=== PATIENT | female | born 1970 | race Caucasian/White ===

== ENCOUNTER 2021-02-05 22:53 | Emergency (ER) | payer MEDICAID ==
[~2021-02-05] VITALS: Ht 149.9 cm; Wt 54.9 kg
[2021-02-05 23:09] VITALS: BP 144/90
--- NOTE | 2021-02-05 23:18 | NUR ---
patient to [facility] ambulatory
--- NOTE | 2021-02-06 00:12 | NUR ---
PATIENT AMBULATED TO BED 2
--- NOTE | 2021-02-06 00:20 | NUR ---
50 yo f bib self with c/c of shakiness since about 10 pm last night. pt states she was watching tv and felt a wet feeling run up her left leg up to back and neck; began shaking and vision became blurry. pt states it has subsided and started up again. reports pressure in back of head and tightness in neck, denies h/a. denies drug and alcohol use. denies sob, fever, n/v. pt is shaking. pt placed on child monitor. bed locked in lowest position, side rails x2. hx:anemia, hyperthyroidism denies rx and allergies.
[2021-02-06 01:11] LABS: BASOPHILS # (AUTO) 0.1 K/uL (0.00-0.22); EOSINOPHILS # (AUTO) 0.3 K/uL (0-0.4); EOSINOPHILS % (AUTO) 3.6 % (0.0-4.0); HEMATOCRIT 25.1 % (36-48); HEMOGLOBIN 7.5 g/dL (12.0-16.0); LYMPHOCYTES # (AUTO) 1.8 K/uL (2.5-16.5); LYMPHOCYTES % (AUTO) 24.9 % (20.5-51.1); MEAN CORPUSCULAR HEMOGLOBIN 19 pg (27-31); MEAN CORPUSCULAR HGB CONC 30 g/dL (33-37); MEAN CORPUSCULAR VOLUME 63.7 fL (80-94); MONOCYTES # (AUTO) 0.5 K/uL (0.8-1.0); MONOCYTES % (AUTO) 6.9 % (1.7-9.3); NEUTROPHILS # (AUTO) 4.6 K/uL (1.8-7.7); NEUTROPHILS % (AUTO) 63.6 % (42.2-75.2); PLATELET COUNT (AUTO) 425 K/uL (140-450); RED BLOOD CELL COUNT(AUTO) 3.95 MIL/uL (4.20-5.40); WHITE BLOOD COUNT (AUTO) 7.3 K/uL (4.8-10.8)
[2021-02-06] MEDS: diazePAM 5 MG TAB PO ONE (01:12)
--- NOTE | 2021-02-06 01:30 | NUR ---
pt ambulated to with steady gait and back to bed.
[2021-02-06 01:34] LABS: ALBUMIN 3.8 g/dL (3.4-5.0); ANION GAP 14.7 (8-16); CARBON DIOXIDE 25.2 mmol/L (21-32); CREATININE 0.7 mg/dL (0.6-1.3); FREE T4 (FREE THYROXINE) 0.55 ng/dL (0.76-1.46); POTASSIUM 3.9 mmol/L (3.5-5.1); THYROID STIMULATING HORMONE 21.76 uIU/mL (0.34-3.74); TOTAL BILIRUBIN 0.3 mg/dL (0.0-1.0)
[2021-02-06] MEDS ORDERED: DIAZ5TAB7 PO (03:28)
[2021-02-06 03:35] VITALS: BP 109/75
--- NOTE | 2021-02-06 03:35 | NUR ---
Patient discharged with v/s stable. Written and verbal after care instructions given and explained. Patient alert, oriented and verbalized understanding of instructions. Ambulatory with steady gait. All questions addressed prior to discharge. ID band removed. Patient advised to follow up with PMD. Rx of valium given. Patient educated on indication of medication including possible reaction and side effects. Opportunity to ask questions provided and answered.
== END 2021-02-06 03:35 | disposition home or self-care (01) ==
LOC: MED 22:53
DX: D64.9 Anemia, unspecified (principal); M53.82 Other specified dorsopathies, cervical region; E11.9 Type 2 diabetes mellitus without complications; E07.9 Disorder of thyroid, unspecified; Z79.899 Other long term (current) drug therapy
CPT/HCPCS: 36415; 71045; 80053; 82948; 84439; 84443; 85025; 93005; 99285

== ENCOUNTER 2021-05-21 21:34 | Emergency (ER) | payer SELFPAY ==
[~2021-05-21] VITALS: Ht 149.9 cm; Wt 54.4 kg
[~2021-05-21 21:34] MED LIST: DIAZ5TAB8 PO
[2021-05-21 21:36] VITALS: BP 151/102
--- NOTE | 2021-05-21 21:36 | NUR ---
VELIA SOUZA VIA GURNEY TO BED 02.
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
[2021-05-21] MEDS ORDERED: IBUPROFEN 600 MG TAB PO ONE (21:45)
--- NOTE | 2021-05-21 22:00 | NUR ---
RETURNED FROM [facility]
[2021-05-21] MEDS ORDERED: IBUP-2213 PO (23:05)
[2021-05-21 23:15] VITALS: BP 151/102
== END 2021-05-21 23:15 | disposition home or self-care (01) ==
LOC: MED 21:34
DX: S01.111A Laceration without foreign body of right eyelid and periocular area, initial encounter (principal); Y04.8XXA Assault by other bodily force, initial encounter; Y93.89 Activity, other specified; Y92.89 Other specified places as the place of occurrence of the external cause; Y99.8 Other external cause status
CPT/HCPCS: 70486; 99284